=== PATIENT | male | born 1980 | race Caucasian/White ===

== ENCOUNTER 2017-01-25 23:05 | Emergency (ER) | payer OTHER ==
[~2017-01-25] VITALS: Ht 175.3 cm; Wt 90.7 kg
[2017-01-26] MEDS ORDERED: TESSALON PERLE100 MG PO (00:12)
[2017-01-26] MEDS ORDERED: IBUPROFEN 600600 M1 PO (00:12)
[2017-01-26 00:45] VITALS: BP 142/86
== END 2017-01-26 00:45 | disposition home or self-care (01) ==
LOC: ER 23:05
DX: J02.9 Acute pharyngitis, unspecified (principal); Z88.6 Allergy status to analgesic agent; Z88.1 Allergy status to other antibiotic agents